=== PATIENT | male | born 1995 | race African-American/Black ===

== ENCOUNTER 2016-12-07 21:37 | Inpatient (IN) | payer MEDICAID ==
[~2016-12-07] VITALS: Ht 188 cm; Wt 50.8 kg
[~2016-12-07 21:37] MED LIST: PANT40TA4 PO; SODI650T PO; SULF1TAB48 PO
[2016-12-08] MEDS ORDERED: SODIUM CHLORIDE 0.9% 1,000 ML IV ONE ×3 (00:38→06:49)
[2016-12-08] MEDS ORDERED: KETOROLAC 30MG/ML VIAL IV STA (00:38)
[2016-12-08] MEDS ORDERED: DIPHENHYDRAMINE 50MG/ML VIAL IV ONE ×3 (00:45→06:45)
[2016-12-08 00:56] LABS: BASOPHILS % 0.3 % (0.0-2.0); EOSINOPHILS % 0.6 % (0.0-5.0); HEMATOCRIT. 40.5 % (42.0-52.0); HEMOGLOBIN. 13.3 g/dL (14.0-18.0); LYMPHOCYTES % 8.1 % (20.0-50.0); MEAN CORPUSCULAR HEMOGLOBIN 27.3 pg (28.0-32.0); MEAN CORPUSCULAR HGB CONC 32.8 g/dL (31.0-37.0); MEAN CORPUSCULAR VOLUME 83.2 fL (80.0-94.0); MEAN PLATELET VOLUME 6.6 fl (7.4-10.4); MONOCYTES % 9.1 % (2.0-8.0); NEUTROPHILS % 81.9 % (40.0-76.0); PLATELET 628 x1000/uL (130-400); RED BLOOD CELL COUNT 4.87 mill/uL (4.7-6.1); RED CELL DISTRIBUTION WIDTH 18.3 % (11.6-14.6); WHITE BLOOD COUNT 16.5 x1000/uL (4.5-11.0)
[2016-12-08 01:01] LABS: PROTHROMBIN TIME 10.7 sec
[2016-12-08 01:06] LABS: ALANINE AMINOTRANSFERASE 33 IU/L (13-61); ALBUMIN 3.5 g/dL (3.4-5.0); ANION GAP 13; CALCIUM 8.5 mg/dL (8.5-10.1); CARBON DIOXIDE 14 mEq/L (21-32); CHLORIDE 114 mEq/L (98-107); INDEX HEMOLYSI 1 (1-3); INDEX ICTERIC 1 (1-4); INDEX LIPEMIC 1 (1-3); LIPASE 109 IU/L (73-393); UREA NITROGEN BLOOD 10 mg/dL (7-21); eGFR > 60 mL/min (>60)
[2016-12-08] MEDS ORDERED: HYDROCODONE/ACETAMINOPHEN 5/325MG TABLET PO ONE (02:15)
[2016-12-08] MEDS ORDERED: MORPHINE SULFATE 4 MG/ML CPJ (NOT FOR IM USE) IV ONE (03:15)
[2016-12-08] MEDS ORDERED: PIPERACILLIN/TAZ 3.375G PREMIX 50 ML IV ONE (06:45)
[2016-12-08] MEDS ORDERED: VANCOMYCIN 500 MG in DEXT 5% WATER 100 ML IV SCH (06:45)
[2016-12-08] MEDS ORDERED: ONDANSETRON HCL 4MG/2ML VIAL IV STA (06:49)
[2016-12-08] MEDS ORDERED: MORPHINE SULFATE 4 MG/ML CPJ (NOT FOR IM USE) IV STA (06:49)
[2016-12-08 07:29] LABS: CHLORIDE 115 mEq/L (98-107); INDEX HEMOLYSI 1 (1-3); INDEX ICTERIC 1 (1-4); INDEX LIPEMIC 1 (1-3)
[2016-12-08 07:30] LABS: BASOPHILS % 0.4 % (0.0-2.0); EOSINOPHILS % 1.6 % (0.0-5.0); HEMOGLOBIN. 12.3 g/dL (14.0-18.0); MEAN CORPUSCULAR HEMOGLOBIN 27.5 pg (28.0-32.0); MEAN CORPUSCULAR HGB CONC 33.1 g/dL (31.0-37.0); MEAN CORPUSCULAR VOLUME 83.1 fL (80.0-94.0); MEAN PLATELET VOLUME 6.5 fl (7.4-10.4); MONOCYTES % 8.5 % (2.0-8.0); NEUTROPHILS % 72.5 % (40.0-76.0); PLATELET 613 x1000/uL (130-400); RED BLOOD CELL COUNT 4.45 mill/uL (4.7-6.1); RED CELL DISTRIBUTION WIDTH 17.9 % (11.6-14.6); WHITE BLOOD COUNT 14.4 x1000/uL (4.5-11.0)
[2016-12-08 07:32] LABS: INR 1.1
[2016-12-08 07:38] LABS: ALANINE AMINOTRANSFERASE 28 IU/L (13-61); ALBUMIN 3.1 g/dL (3.4-5.0); ANION GAP 12; CALCIUM 8.6 mg/dL (8.5-10.1); CARBON DIOXIDE 13 mEq/L (21-32); LIPASE 84 IU/L (73-393); UREA NITROGEN BLOOD 10 mg/dL (7-21); eGFR > 60 mL/min (>60)
[2016-12-08 09:28] LABS: CLARITY URINE CLEAR (CLEAR); COLOR URINE YELLOW (YELLOW); GLUCOSE URINE NEGATIVE (NEGATIVE); KETONES URINE NEGATIVE (NEGATIVE); LEUKOCYTE ESTERASE URINE NEGATIVE (NEGATIVE); NITRITE URINE NEGATIVE (NEGATIVE); OCCULT BLOOD URINE NEGATIVE (NEGATIVE); PROTEIN URINE 1+ (NEGATIVE); SPECIFIC GRAVITY URINE 1.047 (1.005-1.030); UROBILINOGEN URINE 0.2 E.U./dL (0.2-1.0)
[2016-12-08 09:43] LABS: RBC URINE NONE SEEN /hpf (0-2); SQUAMOUS EPITHELIAL CELL URINE RARE /lpf (RARE/1+); WBC URINE 0-2 /hpf (0-2)
[2016-12-08 09:44] LABS: BACTERIA URINE TRACE; COARSE GRANULAR CASTS URINE 0-5 /lpf
[2016-12-08] MEDS ORDERED: SODIUM CHLORIDE 0.9% 10ML VIAL ONE (10:36)
[2016-12-08] MEDS ORDERED: IOHEXOL-300 100 ML BOTTLE ONE (10:36)
[2016-12-08] MEDS ORDERED: LORAZEPAM 2MG/ML CPJ IV PRN (11:00)
[2016-12-08 11:07] VITALS: BP 95/58
[2016-12-08] MEDS: DIPHENHYDRAMINE 50MG/ML VIAL IV PRN ×3 (11:40→21:23)
[2016-12-08] MEDS: MORPHINE SULFATE 2 MG/ML CPJ (NOT FOR IM USE) IV PRN ×3 (11:40→21:24)
[2016-12-08] MEDS: DEXT 5%/0.45% NACL KCL 20MEQ/L 1,000 ML IV SCH ×2 (12:15→14:42)
[2016-12-08] MEDS ORDERED: VANCOMYCIN 1 G PREMIX 200 ML IV SCH (14:00)
[2016-12-08] MEDS: PIPERACILLIN/TAZ 3.375G PREMIX 50 ML IV SCH ×2 (14:42→17:58)
[2016-12-08 16:00] VITALS: BP_SYST 80; BP_SYST 97; BP_DIAS 55; BP_DIAS 67
[2016-12-08 16:28] LABS: CREATINE KINASE 30 IU/L (39-308); INDEX HEMOLYSI 1 (1-3); TROPONIN I < 0.02 ng/mL (0.00-0.04)
[2016-12-08] MEDS: VANCOMYCIN 1500MG in DEXTROSE 5% WATER 250ML IV SCH ×2 (17:57→23:59)
[2016-12-08] MEDS: ONDANSETRON HCL 4MG/2ML VIAL IV PRN (17:58)
[2016-12-08 20:00] VITALS: BP 93/58
[2016-12-09] MEDS: ONDANSETRON HCL 4MG/2ML VIAL IV PRN ×3 (01:49→18:17)
[2016-12-09] MEDS: DIPHENHYDRAMINE 50MG/ML VIAL IV PRN ×5 (01:49→21:47)
[2016-12-09] MEDS: PIPERACILLIN/TAZ 3.375G PREMIX 50 ML IV SCH ×4 (01:49→18:00)
[2016-12-09] MEDS: MORPHINE SULFATE 2 MG/ML CPJ (NOT FOR IM USE) IV PRN ×3 (01:53→10:38)
[2016-12-09 04:00] VITALS: BP 98/67
[2016-12-09] MEDS: VANCOMYCIN 1500MG in DEXTROSE 5% WATER 250ML IV SCH (06:03)
[2016-12-09 07:49] LABS: HEMATOCRIT. 34.1 % (42.0-52.0); HEMOGLOBIN. 11.1 g/dL (14.0-18.0); MEAN CORPUSCULAR HEMOGLOBIN 26.9 pg (28.0-32.0); MEAN CORPUSCULAR HGB CONC 32.6 g/dL (31.0-37.0); MEAN CORPUSCULAR VOLUME 82.5 fL (80.0-94.0); MEAN PLATELET VOLUME 6.7 fl (7.4-10.4); PLATELET 589 x1000/uL (130-400); RED BLOOD CELL COUNT 4.13 mill/uL (4.7-6.1); WHITE BLOOD COUNT 14.1 x1000/uL (4.5-11.0)
[2016-12-09 08:00] VITALS: BP 79/51
[2016-12-09 08:02] LABS: CREATINE KINASE 28 IU/L (39-308); INDEX HEMOLYSI 1 (1-3); TROPONIN I < 0.02 ng/mL (0.00-0.04)
[2016-12-09 08:12] LABS: DIFFERENTIAL COMMENT 1
[2016-12-09 09:29] LABS: ALANINE AMINOTRANSFERASE 20 IU/L (13-61); ALBUMIN 2.9 g/dL (3.4-5.0); ANION GAP 13; CALCIUM 8.1 mg/dL (8.5-10.1); CARBON DIOXIDE 17 mEq/L (21-32); CHLORIDE 114 mEq/L (98-107); HDL CHOLESTEROL 49 mg/dL (40-59); INDEX HEMOLYSI 1 (1-3); INDEX ICTERIC 1 (1-4); INDEX LIPEMIC 1 (1-3); LDL CHOLESTEROL 19 mg/dL (5-100); T3 FREE 1.61 pg/ml (2.18-3.98); T4 FREE 1.35 ng/dL (0.76-1.46); THYROID STIMULATING HORMONE 0.31 uIU/mL (0.36-3.74); TRIGLYCERIDE 49 mg/dL (0-150); UREA NITROGEN BLOOD 7 mg/dL (7-21); eGFR > 60 mL/min (>60)
[2016-12-09 11:57] LABS: ATYPICAL LYMPHOCYTES 1
[2016-12-09 11:58] LABS: PLATELET ESTIMATE MARKEDLY INCREASED; ROULEAUX 2+
[2016-12-09 12:00] VITALS: BP 85/61
[2016-12-09] MEDS ORDERED: MORPHINE SULFATE 4 MG/ML CPJ (NOT FOR IM USE) IV NR (13:15)
[2016-12-09 13:59] LABS: *AMPHETAMINES SCREEN URINE NEGATIVE (NEGATIVE); *BARBITURATES SCREEN URINE NEGATIVE (NEGATIVE); *BENZODIAZEPINES SCREEN URINE NEGATIVE (NEGATIVE); *COCAINE SCREEN URINE NEGATIVE (NEGATIVE); CANNABINOID URINE SCREEN PRESUMTIVE POSITIVE (NEGATIVE); ECSTASY MDMA SCREEN URINE NEGATIVE (NEGATIVE); METHADONE URINE SCREEN NEGATIVE (NEGATIVE); OPIATES URINE SCREEN PRESUMTIVE POSITIVE (NEGATIVE); PHENCYCLIDINE URINE SCREEN NEGATIVE (NEGATIVE)
[2016-12-09] MEDS ORDERED: MORPHINE SULFATE 2 MG/ML CPJ (NOT FOR IM USE) IV PRN (15:00)
[2016-12-09] MEDS ORDERED: SODIUM CHLORIDE 0.9% 1,000 ML IV ONE (15:15)
[2016-12-09 16:00] VITALS: BP 97/64
[2016-12-09 20:00] VITALS: BP 110/66
[2016-12-09] MEDS ORDERED: HYDROCODONE/ACETAMINOPHEN 5/325MG TABLET PO PRN (20:30)
[2016-12-10] VITALS: BP 102/73
[2016-12-10] MEDS: ONDANSETRON HCL 4MG/2ML VIAL IV PRN ×2 (00:22→09:42)
[2016-12-10] MEDS: DIPHENHYDRAMINE 50MG/ML VIAL IV PRN ×4 (01:42→14:09)
[2016-12-10] MEDS: PIPERACILLIN/TAZ 3.375G PREMIX 50 ML IV SCH ×3 (05:23→12:15)
[2016-12-10 08:00] VITALS: BP 100/68
[2016-12-10] MEDS ORDERED: MORPHINE SULFATE 4 MG/ML CPJ (NOT FOR IM USE) IV SCH (08:30)
[2016-12-10 12:00] VITALS: BP 99/62
[2016-12-10 12:54] VITALS: BP 99/62
== END 2016-12-10 15:30 | disposition home or self-care (01) | DRG 721 ==
LOC: ER 21:37 → 6EST 12-08 08:36 → SUPCPDRO 12-08 09:39
PROVIDERS: ADMIT Internal Medicine; ATTEND Internal Medicine
DX: T80.218A Other infection due to central venous catheter, initial encounter (principal); K65.1 Peritoneal abscess; A41.9 Sepsis, unspecified organism; J45.909 Unspecified asthma, uncomplicated; Y83.8 Other surgical procedures as the cause of abnormal reaction of the patient, or of later complication, without mention of misadventure at the time of the procedure; I10 Essential (primary) hypertension; Y92.89 Other specified places as the place of occurrence of the external cause; Z90.81 Acquired absence of spleen; Z90.5 Acquired absence of kidney; Z93.3 Colostomy status
CPT/HCPCS: 36415; 71010; 74177; 80053; 80061; 80202; 80305; 81001; 82550; 83605; 83690; 84439; 84443; 84481; 84484; 85025; 85610; 85730; 86850; 86900; 87040; 93005; 93970; 96365; 96366; 96367; 96375; 96376; 99285; A4216; J1200; J1885; J2060; J2270; J2405; J2543; J3370; J7030; J7060; Q9967

== ENCOUNTER 2016-12-30 02:39 | Emergency (ER) | payer MEDICAID ==
[~2016-12-30] VITALS: Ht 190.5 cm; Wt 51.0 kg
[2016-12-30] MEDS ORDERED: ONDANSETRON HCL 4MG/2ML VIAL IV STA (03:14)
[2016-12-30] MEDS ORDERED: SODIUM CHLORIDE 0.9% 1,000 ML IV ONE (03:14)
[2016-12-30] MEDS ORDERED: MORPHINE SULFATE 4 MG/ML CPJ (NOT FOR IM USE) IV STA (03:14)
[2016-12-30 03:30] LABS: HEMOGLOBIN. 12.8 g/dL (14.0-18.0); MEAN CORPUSCULAR HEMOGLOBIN 26.8 pg (28.0-32.0); MEAN CORPUSCULAR HGB CONC 32.8 g/dL (31.0-37.0); MEAN CORPUSCULAR VOLUME 81.6 fL (80.0-94.0); MEAN PLATELET VOLUME 6.9 fl (7.4-10.4); PLATELET 608 x1000/uL (130-400); RED BLOOD CELL COUNT 4.78 mill/uL (4.7-6.1); RED CELL DISTRIBUTION WIDTH 18.5 % (11.6-14.6); WHITE BLOOD COUNT 14.5 x1000/uL (4.5-11.0)
[2016-12-30 03:36] LABS: DIFFERENTIAL COMMENT 1
[2016-12-30 03:37] LABS: CHLORIDE 117 mEq/L (98-107); INDEX HEMOLYSI 2 (1-3); INDEX ICTERIC 1 (1-4); INDEX LIPEMIC 1 (1-3); INR 1.2; PARTIAL THROMBOPLASTIN TIME 27.5 sec (24.0-34.0); PROTHROMBIN TIME 12.6 sec
[2016-12-30] MEDS ORDERED: DIPHENHYDRAMINE 50MG/ML VIAL IV ONE ×2 (03:45→05:15)
[2016-12-30 03:47] LABS: PLATELET ESTIMATE MARKEDLY INCREASED
[2016-12-30 03:49] LABS: ALBUMIN 3.4 g/dL (3.4-5.0); ANION GAP 14; CALCIUM 8.2 mg/dL (8.5-10.1); CARBON DIOXIDE 13 mEq/L (21-32); UREA NITROGEN BLOOD 4 mg/dL (7-21); eGFR > 60 mL/min (>60)
[2016-12-30 03:50] LABS: ALANINE AMINOTRANSFERASE 15 IU/L (13-61); LIPASE 119 IU/L (73-393)
[2016-12-30 03:58] LABS: CLARITY URINE CLEAR (CLEAR); COLOR URINE YELLOW (YELLOW); GLUCOSE URINE NEGATIVE (NEGATIVE); KETONES URINE NEGATIVE (NEGATIVE); LEUKOCYTE ESTERASE URINE NEGATIVE (NEGATIVE); NITRITE URINE NEGATIVE (NEGATIVE); OCCULT BLOOD URINE NEGATIVE (NEGATIVE); PH URINE 5.5 (4.5-8.0); PROTEIN URINE TRACE (NEGATIVE); SPECIFIC GRAVITY URINE 1.014 (1.005-1.030); UROBILINOGEN URINE 0.2 E.U./dL (0.2-1.0)
[2016-12-30 04:34] LABS: BACTERIA URINE NONE SEEN; RBC URINE 0-2 /hpf (0-2); SQUAMOUS EPITHELIAL CELL URINE NONE SEEN /lpf (RARE/1+); WBC URINE 0-2 /hpf (0-2)
[2016-12-30] MEDS ORDERED: ONDANSETRON HCL 4MG/2ML VIAL IV ONE ×2 (05:15→08:00)
[2016-12-30] MEDS ORDERED: MORPHINE SULFATE 4 MG/ML CPJ (NOT FOR IM USE) IV ONE ×3 (05:15→11:30)
[2016-12-30] MEDS ORDERED: CEFTRIAXONE 1 G PREMIX 50 ML IV ONE (06:15)
[2016-12-30] MEDS ORDERED: METRONIDAZOLE 500 MG PREMIX 100 ML IV ONE (06:15)
[2016-12-30] MEDS ORDERED: SODIUM CHLORIDE 0.9% 10ML VIAL ONE (10:30)
[2016-12-30] MEDS ORDERED: IOHEXOL-300 100 ML BOTTLE ONE (10:30)
[2016-12-30 15:14] VITALS: BP 104/65
== END 2016-12-30 15:18 | disposition home or self-care (01) ==
LOC: ER 02:46
DX: R10.9 Unspecified abdominal pain (principal); R11.0 Nausea; R53.1 Weakness; R12 Heartburn; Z93.3 Colostomy status; Z98.890 Other specified postprocedural states; Z88.8 Allergy status to other drugs, medicaments and biological substances
CPT/HCPCS: 36415; 74177; 80053; 81001; 83690; 85025; 85610; 85730; 96361; 96374; 96375; 96376; 99285; A4216; J1200; J2270; J2405; J7030; Q9967; Z7610

== ENCOUNTER 2017-01-04 00:18 | Inpatient (IN) | payer MEDICAID ==
[~2017-01-04] VITALS: Ht 190.5 cm; Wt 50.8 kg
[2017-01-04] VITALS (8 sets, daily range): BP systolic 92–123; BP diastolic 40–86
[2017-01-04] MEDS ORDERED: ONDANSETRON HCL 4MG/2ML VIAL IV STA (01:07)
[2017-01-04] MEDS ORDERED: MORPHINE SULFATE 4 MG/ML CPJ (NOT FOR IM USE) IV STA (01:07)
[2017-01-04] MEDS ORDERED: SODIUM CHLORIDE 0.9% 1,000 ML IV ONE (01:07)
[2017-01-04] MEDS ORDERED: DIPHENHYDRAMINE 50MG/ML VIAL IV ONE (01:15)
[2017-01-04 01:24] LABS: BASOPHILS % 0.4 % (0.0-2.0); EOSINOPHILS % 1.3 % (0.0-5.0); HEMATOCRIT. 44.5 % (42.0-52.0); HEMOGLOBIN. 14.7 g/dL (14.0-18.0); LYMPHOCYTES % 18.3 % (20.0-50.0); MEAN CORPUSCULAR HEMOGLOBIN 26.7 pg (28.0-32.0); MEAN CORPUSCULAR HGB CONC 33.1 g/dL (31.0-37.0); MEAN CORPUSCULAR VOLUME 80.8 fL (80.0-94.0); MONOCYTES % 6.5 % (2.0-8.0); NEUTROPHILS % 73.5 % (40.0-76.0); PLATELET 674 x1000/uL (130-400); WHITE BLOOD COUNT 11.5 x1000/uL (4.5-11.0)
[2017-01-04 01:28] LABS: CHLORIDE 113 mEq/L (98-107); INDEX HEMOLYSI 1 (1-3); INDEX ICTERIC 1 (1-4); INDEX LIPEMIC 1 (1-3)
[2017-01-04 01:37] LABS: ALANINE AMINOTRANSFERASE 26 IU/L (13-61); ANION GAP 16; CALCIUM 8.8 mg/dL (8.5-10.1); UREA NITROGEN BLOOD 13 mg/dL (7-21); eGFR > 60 mL/min (>60)
[2017-01-04 01:40] LABS: CARBON DIOXIDE 10 mEq/L (21-32)
[2017-01-04] MEDS ORDERED: ONDANSETRON HCL 4MG/2ML VIAL IV PRN (05:53)
[2017-01-04] MEDS ORDERED: DIPHENHYDRAMINE 50MG/ML VIAL IV PRN (05:54)
[2017-01-04] MEDS ORDERED: MORPHINE SULFATE 4 MG/ML CPJ (NOT FOR IM USE) IV PRN (05:54)
[2017-01-04] MEDS ORDERED: SODIUM BICARBONATE 8.4% 1 MEQ/ML 50ML SYR IV ONE ×2 (08:00→08:02)
[2017-01-04 09:48] LABS: BG BASE EXCESS -16.1 mmol/L (-2.0-2.0); BG CARBOXYHEMOGLOBIN 0.2 % (0.5-1.5); BG DEOXYHEMOGLOBIN 2.1 % (0.0-5.0); BG FRACTION INSPIRED OXYGEN 21; BG METHEMOGLOBIN 0.2 % (0.0-1.5); BG OXYGEN SATURATION 97.9 % (92.0-98.5); BG OXYHEMOGLOBIN 97.5 % (94.0-97.0); BG PCO2 25.7 mmHg (35.0-45.0); BG PH 7.209 (7.350-7.450); BG PO2 110.6 mmHg (75.0-100.0); BG SAMPLE SITE RIGHT BRACHIAL; BG VENT MODE ROOM AIR
[2017-01-04] MEDS ORDERED: SODIUM CHLORIDE 0.9% 1,000 ML IV NR (10:15)
[2017-01-04] MEDS ORDERED: DIPHENHYDRAMINE 50MG CAPSULE PO PRN (10:15)
[2017-01-04] MEDS ORDERED: DIPHENHYDRAMINE 50MG/ML VIAL IV NR (10:15)
[2017-01-04] MEDS: HYDROCODONE/ACETAMINOPHEN 10/325MG TABLET PO PRN ×2 (10:50→17:31)
[2017-01-04] MEDS: MORPHINE SULFATE 4 MG/ML CPJ (NOT FOR IM USE) IV PRN ×2 (14:39→22:17)
[2017-01-04] MEDS: DIPHENHYDRAMINE 50MG/ML VIAL IV PRN ×2 (14:43→22:15)
[2017-01-04] MEDS: POTASSIUM CHLORIDE 20MEQ TABLET SR PO NR ×2 (16:04→16:17)
[2017-01-04] MEDS: SODIUM BICARBONATE 650 MG TABLET PO SCH (17:30)
[2017-01-04] MEDS: ONDANSETRON HCL 4MG/2ML VIAL IV PRN (19:46)
[2017-01-05 00:01] VITALS: BP 122/86
[2017-01-05] MEDS: ONDANSETRON HCL 4MG/2ML VIAL IV PRN ×3 (01:46→17:14)
[2017-01-05 04:20] VITALS: BP 116/68
[2017-01-05] MEDS: DIPHENHYDRAMINE 50MG/ML VIAL IV PRN ×4 (04:24→22:57)
[2017-01-05] MEDS: MORPHINE SULFATE 4 MG/ML CPJ (NOT FOR IM USE) IV PRN ×4 (04:25→21:50)
[2017-01-05 08:00] VITALS: BP 112/61
[2017-01-05] MEDS ORDERED: PANTOPRAZOLE 40MG DR TABLET PO SCH (09:00)
[2017-01-05 09:13] LABS: HEMATOCRIT. 33.2 % (42.0-52.0); HEMOGLOBIN. 11.1 g/dL (14.0-18.0); MEAN CORPUSCULAR HEMOGLOBIN 26.7 pg (28.0-32.0); MEAN CORPUSCULAR HGB CONC 33.6 g/dL (31.0-37.0); MEAN CORPUSCULAR VOLUME 79.4 fL (80.0-94.0); MEAN PLATELET VOLUME 6.8 fl (7.4-10.4); PLATELET 534 x1000/uL (130-400); RED BLOOD CELL COUNT 4.17 mill/uL (4.7-6.1); RED CELL DISTRIBUTION WIDTH 18.8 % (11.6-14.6); WHITE BLOOD COUNT 12.3 x1000/uL (4.5-11.0)
[2017-01-05 09:17] LABS: DIFFERENTIAL COMMENT 1
[2017-01-05] MEDS: SODIUM BICARBONATE 650 MG TABLET PO SCH ×3 (09:31→17:00)
[2017-01-05 09:56] LABS: HYPOCHROMASIA 1+; PLATELET ESTIMATE INCREASED; TARGET CELLS 1+
[2017-01-05 09:57] LABS: ANISOCYTOSIS 1+
[2017-01-05 10:37] LABS: CHLORIDE 113 mEq/L (98-107); INDEX HEMOLYSI 1 (1-3); INDEX ICTERIC 1 (1-4); INDEX LIPEMIC 1 (1-3)
[2017-01-05 10:46] LABS: ALANINE AMINOTRANSFERASE 22 IU/L (13-61); ANION GAP 10; CALCIUM 7.8 mg/dL (8.5-10.1); CARBON DIOXIDE 21 mEq/L (21-32); UREA NITROGEN BLOOD 9 mg/dL (7-21); eGFR > 60 mL/min (>60)
[2017-01-05 16:00] VITALS: BP 100/62
[2017-01-05 18:00] VITALS: BP 118/62
[2017-01-05] MEDS: POTASSIUM CHLORIDE 20MEQ TABLET SR PO SCH (20:13)
[2017-01-05 22:00] VITALS: BP 107/70
[2017-01-06] MEDS: POTASSIUM CHLORIDE 20MEQ TABLET SR PO SCH (00:04)
[2017-01-06] MEDS: ONDANSETRON HCL 4MG/2ML VIAL IV PRN (00:10)
[2017-01-06] MEDS: MORPHINE SULFATE 4 MG/ML CPJ (NOT FOR IM USE) IV PRN ×2 (02:04→06:08)
[2017-01-06 04:00] VITALS: BP 103/74
[2017-01-06] MEDS: DIPHENHYDRAMINE 50MG/ML VIAL IV PRN (05:30)
[2017-01-06 08:00] VITALS: BP 99/70
== END 2017-01-06 08:55 | disposition home or self-care (01) | DRG 813 ==
LOC: ER 00:37 → 3WST 01:54 → 6EST 01-06 00:35
PROVIDERS: ADMIT Internal Medicine; ATTEND Internal Medicine
DX: T81.89XA Other complications of procedures, not elsewhere classified, initial encounter (principal); E87.2 Acidosis; I95.9 Hypotension, unspecified; Y83.8 Other surgical procedures as the cause of abnormal reaction of the patient, or of later complication, without mention of misadventure at the time of the procedure; E86.0 Dehydration; I10 Essential (primary) hypertension; K59.00 Constipation, unspecified; Z60.2 Problems related to living alone; Z93.3 Colostomy status; Y92.89 Other specified places as the place of occurrence of the external cause
CPT/HCPCS: 36415; 36600; 71010; 74000; 80053; 82010; 82375; 82805; 83605; 85025; 87070; 87077; 87186; 87205; 96374; 96375; 97162; 99285; J1200; J2270; J2405; J3490; J7030; A4315

== ENCOUNTER 2017-01-06 09:50 | Inpatient (IN) | payer MEDICAID ==
[~2017-01-06] VITALS: Ht 160 cm; Wt 81.0 kg
[2017-01-06] MEDS ORDERED: MORPHINE SULFATE 4 MG/ML CPJ (NOT FOR IM USE) IV STA (10:37)
[2017-01-06] MEDS ORDERED: DIPHENHYDRAMINE 50MG/ML VIAL IV ONE (10:45)
[2017-01-06 10:56] LABS: CHLORIDE 111 mEq/L (98-107)
[2017-01-06 11:05] LABS: BASOPHILS % 0.5 % (0.0-2.0); CARBON DIOXIDE 22 mEq/L (21-32); EOSINOPHILS % 2.6 % (0.0-5.0); HEMATOCRIT. 36.5 % (42.0-52.0); LYMPHOCYTES % 14.2 % (20.0-50.0); MEAN CORPUSCULAR HEMOGLOBIN 26.5 pg (28.0-32.0); MEAN CORPUSCULAR VOLUME 80.8 fL (80.0-94.0); MEAN PLATELET VOLUME 7.1 fl (7.4-10.4); MONOCYTES % 6.2 % (2.0-8.0); NEUTROPHILS % 76.5 % (40.0-76.0); PLATELET 588 x1000/uL (130-400); RED BLOOD CELL COUNT 4.52 mill/uL (4.7-6.1)
[2017-01-06] MEDS ORDERED: MORPHINE SULFATE 4 MG/ML CPJ (NOT FOR IM USE) IV ONE (14:15)
[2017-01-06] MEDS ORDERED: ONDANSETRON HCL 4MG/2ML VIAL IV ONE (16:30)
[2017-01-06 22:10] VITALS: BP 107/71
[2017-01-06 22:22] VITALS: BP 107/71
[2017-01-07 00:22] VITALS: BP 102/77
[2017-01-07] MEDS: HYDROMORPHONE HCL/PF 2MG/ML CPJ IV PRN ×6 (00:25→22:23)
[2017-01-07 04:30] VITALS: BP 95/58
[2017-01-07 06:27] LABS: CHLORIDE 113 mEq/L (98-107)
[2017-01-07 06:33] LABS: CARBON DIOXIDE 18 mEq/L (21-32)
[2017-01-07 06:46] LABS: BASOPHILS % 0.6 % (0.0-2.0); EOSINOPHILS % 2.9 % (0.0-5.0); HEMATOCRIT. 36.7 % (42.0-52.0); HEMOGLOBIN. 12.1 g/dL (14.0-18.0); LYMPHOCYTES % 17.5 % (20.0-50.0); MEAN CORPUSCULAR HEMOGLOBIN 26.8 pg (28.0-32.0); MEAN CORPUSCULAR VOLUME 80.9 fL (80.0-94.0); MEAN PLATELET VOLUME 7.3 fl (7.4-10.4); MONOCYTES % 7.8 % (2.0-8.0); NEUTROPHILS % 71.2 % (40.0-76.0); PLATELET 608 x1000/uL (130-400); RED BLOOD CELL COUNT 4.53 mill/uL (4.7-6.1)
[2017-01-07 08:00] VITALS: BP 94/55
[2017-01-07] MEDS ORDERED: POTASSIUM CHLORIDE 20MEQ TABLET SR PO NR ×2 (08:30)
[2017-01-07] MEDS: DIPHENHYDRAMINE 50MG/ML VIAL IV PRN ×3 (10:42→22:21)
[2017-01-07] MEDS: ONDANSETRON HCL 4MG/2ML VIAL IV PRN ×2 (10:42→18:12)
[2017-01-07 12:00] VITALS: BP_SYST 110; BP_SYST 116; BP_DIAS 51; BP_DIAS 68
[2017-01-07] MEDS: SODIUM CHLORIDE 0.9% 1,000 ML IV SCH (13:07)
[2017-01-07 16:00] VITALS: BP 110/51
[2017-01-07 20:00] VITALS: BP 105/64
[2017-01-08] VITALS: BP 124/57
[2017-01-08] MEDS ORDERED: LACTULOSE 20G/30ML UDC PO PRN (01:00)
[2017-01-08] MEDS: SODIUM CHLORIDE 0.9% 1,000 ML IV SCH ×2 (01:54→14:46)
[2017-01-08] MEDS: DIPHENHYDRAMINE 50MG/ML VIAL IV PRN ×2 (02:24→06:14)
[2017-01-08] MEDS: HYDROMORPHONE HCL/PF 2MG/ML CPJ IV PRN ×3 (02:30→10:12)
[2017-01-08 04:00] VITALS: BP 120/66
[2017-01-08 08:00] VITALS: BP 94/57
[2017-01-08 12:00] VITALS: BP 99/66
[2017-01-08] MEDS: HYDROCODONE/APAP 7.5/325MG 1 TAB TABLET PO PRN ×2 (12:50→16:52)
[2017-01-08 16:00] VITALS: BP 95/69
[2017-01-08] MEDS: OXYCODONE HCL/ACETAMINOPHEN 5/325MG TABLET PO PRN ×2 (18:17→22:19)
[2017-01-08] MEDS: DIPHENHYDRAMINE 50MG CAPSULE PO PRN ×2 (18:49→22:49)
[2017-01-08] MEDS ORDERED: POTASSIUM CHLORIDE 20MEQ TABLET SR PO NR (19:30)
[2017-01-08 20:00] VITALS: BP 103/62
[2017-01-08] MEDS: ONDANSETRON HCL 4MG/2ML VIAL IV PRN (23:07)
[2017-01-09] MEDS: SODIUM CHLORIDE 0.9% 1,000 ML IV SCH (02:48)
[2017-01-09] MEDS: DIPHENHYDRAMINE 50MG CAPSULE PO PRN (03:56)
[2017-01-09 04:00] VITALS: BP 115/74
[2017-01-09] MEDS: OXYCODONE HCL/ACETAMINOPHEN 5/325MG TABLET PO PRN (04:00)
[2017-01-09 08:00] VITALS: BP 148/76
[2017-01-09] MEDS ORDERED: MORPHINE SULFATE 4 MG/ML CPJ (NOT FOR IM USE) IV NR (10:00)
[2017-01-09 11:21] LABS: CARBON DIOXIDE 17 mEq/L (21-32); CHLORIDE 114 mEq/L (98-107)
[2017-01-09 12:00] VITALS: BP 110/71
[2017-01-09] MEDS: MORPHINE SULFATE 4 MG/ML CPJ (NOT FOR IM USE) IV PRN ×2 (15:54→20:18)
[2017-01-09 16:00] VITALS: BP 103/69
[2017-01-09] MEDS: ONDANSETRON HCL 4MG/2ML VIAL IV PRN (21:02)
[2017-01-10] VITALS (7 sets, daily range): BP systolic 100–132; BP diastolic 59–74
[2017-01-10] MEDS: MORPHINE SULFATE 4 MG/ML CPJ (NOT FOR IM USE) IV PRN ×6 (00:14→21:30)
[2017-01-10] MEDS: DIPHENHYDRAMINE 50MG CAPSULE PO PRN ×2 (01:10→21:30)
[2017-01-10] MEDS: ONDANSETRON HCL 4MG/2ML VIAL IV PRN ×4 (04:47→23:45)
[2017-01-10] MEDS: SODIUM CHLORIDE 0.9% 1,000 ML IV SCH ×2 (04:55→18:18)
[2017-01-10] MEDS: MAGNESIUM HYDROXIDE 400MG/5ML 30ML UDC PO PRN (15:41)
[2017-01-10] MEDS: THROAT LOZENGES-BENZOCAINE/MENTH/CETYLPYRD CL LOZENGES MM PRN (16:26)
[2017-01-11] VITALS: BP 148/80
[2017-01-11] MEDS: MORPHINE SULFATE 4 MG/ML CPJ (NOT FOR IM USE) IV PRN ×6 (01:44→21:45)
[2017-01-11] MEDS: DIPHENHYDRAMINE 50MG CAPSULE PO PRN ×2 (01:44→05:46)
[2017-01-11 04:00] VITALS: BP 113/67
[2017-01-11] MEDS: ONDANSETRON HCL 4MG/2ML VIAL IV PRN ×2 (05:38→13:37)
[2017-01-11] MEDS: SODIUM CHLORIDE 0.9% 1,000 ML IV SCH ×2 (07:33→21:45)
[2017-01-11 08:00] VITALS: BP 102/60
[2017-01-11 12:00] VITALS: BP 108/61
[2017-01-11] MEDS: THROAT LOZENGES-BENZOCAINE/MENTH/CETYLPYRD CL LOZENGES MM PRN (13:37)
[2017-01-11] MEDS: MAGNESIUM HYDROXIDE 400MG/5ML 30ML UDC PO PRN (13:37)
[2017-01-11 16:00] VITALS: BP 112/73
[2017-01-11 20:00] VITALS: BP 133/66
[2017-01-12] VITALS: BP 142/68
[2017-01-12] MEDS: DIPHENHYDRAMINE 50MG CAPSULE PO PRN ×3 (01:33→19:56)
[2017-01-12] MEDS: ONDANSETRON HCL 4MG/2ML VIAL IV PRN ×4 (02:06→19:56)
[2017-01-12] MEDS: MORPHINE SULFATE 4 MG/ML CPJ (NOT FOR IM USE) IV PRN ×6 (02:07→21:32)
[2017-01-12 04:00] VITALS: BP 105/65
[2017-01-12 08:00] VITALS: BP 118/66
[2017-01-12] MEDS: MAGNESIUM HYDROXIDE 400MG/5ML 30ML UDC PO PRN (10:02)
[2017-01-12] MEDS: SODIUM CHLORIDE 0.9% 1,000 ML IV SCH (10:18)
[2017-01-12 12:00] VITALS: BP 119/71
[2017-01-12 16:00] VITALS: BP 118/72
[2017-01-12] MEDS: THROAT LOZENGES-BENZOCAINE/MENTH/CETYLPYRD CL LOZENGES MM PRN (17:57)
[2017-01-12 20:00] VITALS: BP 106/64
[2017-01-13] VITALS: BP 102/56
[2017-01-13] MEDS: DIPHENHYDRAMINE 50MG CAPSULE PO PRN ×4 (00:09→18:48)
[2017-01-13] MEDS: SODIUM CHLORIDE 0.9% 1,000 ML IV SCH ×2 (00:14→13:00)
[2017-01-13] MEDS: THROAT LOZENGES-BENZOCAINE/MENTH/CETYLPYRD CL LOZENGES MM PRN ×3 (01:35→21:18)
[2017-01-13] MEDS: MORPHINE SULFATE 4 MG/ML CPJ (NOT FOR IM USE) IV PRN ×7 (01:36→21:07)
[2017-01-13 04:00] VITALS: BP 111/67
[2017-01-13] MEDS: ONDANSETRON HCL 4MG/2ML VIAL IV PRN ×3 (05:35→18:18)
[2017-01-13 08:00] VITALS: BP 96/63
[2017-01-13] MEDS: MAGNESIUM HYDROXIDE 400MG/5ML 30ML UDC PO PRN (10:43)
[2017-01-13 12:00] VITALS: BP 96/63
[2017-01-13] MEDS: METRONIDAZOLE 500 MG PREMIX 100 ML IV SCH ×2 (14:39→21:06)
[2017-01-13] MEDS: LEVOFLOXACIN 500MG PREMIX 100 ML IV SCH (14:39)
[2017-01-13 16:00] VITALS: BP 106/61
[2017-01-13] MEDS: DOCUSATE SODIUM 100MG CAPSULE PO SCH (17:29)
[2017-01-13 20:00] VITALS: BP 107/61
[2017-01-14] VITALS: BP 117/63
[2017-01-14] MEDS: ONDANSETRON HCL 4MG/2ML VIAL IV PRN ×3 (00:07→13:16)
[2017-01-14] MEDS: MORPHINE SULFATE 4 MG/ML CPJ (NOT FOR IM USE) IV PRN ×5 (00:08→12:45)
[2017-01-14] MEDS: DIPHENHYDRAMINE 50MG CAPSULE PO PRN ×2 (02:51→06:40)
[2017-01-14] MEDS: SODIUM CHLORIDE 0.9% 1,000 ML IV SCH (02:51)
[2017-01-14] MEDS: THROAT LOZENGES-BENZOCAINE/MENTH/CETYLPYRD CL LOZENGES MM PRN ×2 (03:10→10:17)
[2017-01-14 04:00] VITALS: BP 100/64
[2017-01-14] MEDS: METRONIDAZOLE 500 MG PREMIX 100 ML IV SCH (06:07)
[2017-01-14 08:00] VITALS: BP 108/63
[2017-01-14] MEDS: DOCUSATE SODIUM 100MG CAPSULE PO SCH (09:00)
[2017-01-14] MEDS: MAGNESIUM HYDROXIDE 400MG/5ML 30ML UDC PO PRN (10:17)
[2017-01-14 12:00] VITALS: BP 131/68
[2017-01-14 12:03] VITALS: BP 108/63
[2017-01-14] MEDS: LEVOFLOXACIN 500MG PREMIX 100 ML IV SCH (13:16)
[2017-01-14 16:00] VITALS: BP 129/69
== END 2017-01-14 16:53 | disposition home or self-care (01) | DRG 721 ==
LOC: ER 11:41 → 6EST 16:35
PROVIDERS: ADMIT Hospitalist; ATTEND Hospitalist
DX: T81.4XXA Infection following a procedure, initial encounter (principal); N13.30 Unspecified hydronephrosis; L02.211 Cutaneous abscess of abdominal wall; E86.0 Dehydration; D64.9 Anemia, unspecified; E87.6 Hypokalemia; K59.00 Constipation, unspecified; Z93.3 Colostomy status
CPT/HCPCS: 36415; 74176; 80048; 80053; 85025; 96374; 96375; 96376; 99285; J1170; J1200; J1956; J2270; J2405; J3490; J7030; J7050; Q0163

== ENCOUNTER 2017-01-20 19:36 | Inpatient (IN) | payer MEDICAID ==
[~2017-01-20] VITALS: Ht 182.9 cm; Wt 49.9 kg
[2017-01-20] MEDS ORDERED: SODIUM CHLORIDE 0.9% 1,000 ML IV ONE (20:36)
[2017-01-20 20:58] LABS: HEMATOCRIT. 44.3 % (42.0-52.0); HEMOGLOBIN. 14.2 g/dL (14.0-18.0); MEAN CORPUSCULAR HEMOGLOBIN 26.4 pg (28.0-32.0); MEAN CORPUSCULAR VOLUME 82.1 fL (80.0-94.0); MEAN PLATELET VOLUME 7.1 fl (7.4-10.4); PLATELET 770 x1000/uL (130-400); RED CELL DISTRIBUTION WIDTH 18.3 % (11.6-14.6)
[2017-01-20 21:01] LABS: INR 1.6; PROTHROMBIN TIME 17.2 sec
[2017-01-20 21:08] LABS: CARBON DIOXIDE 13 mEq/L (21-32); CHLORIDE 115 mEq/L (98-107)
[2017-01-20 21:14] LABS: PLATELET ESTIMATE MARKEDLY INCREASED
[2017-01-20] MEDS ORDERED: DIPHENHYDRAMINE 25MG CAPSULE PO ONE (22:30)
[2017-01-20] MEDS ORDERED: HYDROCODONE/ACETAMINOPHEN 5/325MG TABLET PO ONE (22:30)
[2017-01-21 00:03] LABS: CLARITY URINE CLEAR (CLEAR); COLOR URINE YELLOW (YELLOW); GLUCOSE URINE NEGATIVE (NEGATIVE); KETONES URINE NEGATIVE (NEGATIVE); LEUKOCYTE ESTERASE URINE NEGATIVE (NEGATIVE); NITRITE URINE NEGATIVE (NEGATIVE); OCCULT BLOOD URINE NEGATIVE (NEGATIVE); PH URINE 5.5 (4.5-8.0); PROTEIN URINE 2+ (NEGATIVE); SPECIFIC GRAVITY URINE 1.018 (1.005-1.030); UROBILINOGEN URINE 0.2 E.U./dL (0.2-1.0)
[2017-01-21] MEDS ORDERED: DEXT 5%/0.45% NACL 1000ML 1,000 ML IV SCH (00:46)
[2017-01-21] MEDS ORDERED: ACETAMINOPHEN 325MG TABLET PO PRN (01:00)
[2017-01-21] MEDS ORDERED: CLONIDINE 0.1MG TABLET PO PRN (01:00)
[2017-01-21] MEDS ORDERED: DOCUSATE SODIUM 100MG CAPSULE PO PRN (01:00)
[2017-01-21] MEDS ORDERED: ACETAMINOPHEN 650MG/20.3ML UDC GT PRN (01:00)
[2017-01-21 01:30] VITALS: BP 109/68
[2017-01-21] MEDS ORDERED: MORPHINE SULFATE 4 MG/ML CPJ (NOT FOR IM USE) IV PRN ×2 (02:00→08:00)
[2017-01-21] MEDS ORDERED: ALBUTEROL (0.083%) 2.5MG/3ML NEB INH PRN (02:30)
[2017-01-21] MEDS: DIPHENHYDRAMINE 50MG/ML VIAL IV PRN ×5 (03:19→23:07)
[2017-01-21] MEDS: MORPHINE SULFATE 4 MG/ML CPJ (NOT FOR IM USE) IV PRN ×3 (03:33→15:21)
[2017-01-21 04:00] VITALS: BP 118/89
[2017-01-21] MEDS: SODIUM BICARBONATE 50 MEQ in DEXT 5%/0.45% NACL 1000ML 1,000 ML IV SCH (04:53)
[2017-01-21] MEDS: IPRATROPIUM/ALBUTEROL 0.5-3(2.5)MG/3ML NEB INH SCH ×2 (07:59→15:52)
[2017-01-21 08:00] VITALS: BP 100/78
[2017-01-21] MEDS: ONDANSETRON HCL 4MG/2ML VIAL IV PRN (09:47)
[2017-01-21 16:00] VITALS: BP 125/75
[2017-01-21] MEDS ORDERED: MORPHINE SULFATE 4 MG/ML CPJ (NOT FOR IM USE) IV NR (17:00)
[2017-01-21] MEDS ORDERED: HYDROCODONE/ACETAMINOPHEN 5/325MG TABLET PO PRN (17:00)
[2017-01-21 19:14] LABS: BASOPHILS % 1.4 % (0.0-2.0); EOSINOPHILS % 0.9 % (0.0-5.0); HEMATOCRIT. 38.4 % (42.0-52.0); HEMOGLOBIN. 12.5 g/dL (14.0-18.0); LYMPHOCYTES % 10.9 % (20.0-50.0); MEAN CORPUSCULAR HEMOGLOBIN 26.4 pg (28.0-32.0); MEAN CORPUSCULAR VOLUME 80.9 fL (80.0-94.0); MEAN PLATELET VOLUME 6.9 fl (7.4-10.4); MONOCYTES % 5.8 % (2.0-8.0); PLATELET 688 x1000/uL (130-400); RED BLOOD CELL COUNT 4.74 mill/uL (4.7-6.1); RED CELL DISTRIBUTION WIDTH 17.9 % (11.6-14.6)
[2017-01-21 19:21] LABS: CHLORIDE 114 mEq/L (98-107)
[2017-01-21 19:25] LABS: CARBON DIOXIDE 17 mEq/L (21-32)
[2017-01-21 20:00] VITALS: BP 114/70
[2017-01-21] MEDS: OXYCODONE HCL/ACETAMINOPHEN 5/325MG TABLET PO PRN (22:05)
[2017-01-22] VITALS: BP 101/72
[2017-01-22] MEDS: IPRATROPIUM/ALBUTEROL 0.5-3(2.5)MG/3ML NEB INH SCH ×3 (00:38→16:00)
[2017-01-22] MEDS: SODIUM BICARBONATE 50 MEQ in DEXT 5%/0.45% NACL 1000ML 1,000 ML IV SCH ×2 (03:40→14:21)
[2017-01-22] MEDS: DIPHENHYDRAMINE 50MG/ML VIAL IV PRN ×5 (03:41→20:58)
[2017-01-22 04:00] VITALS: BP 134/79
[2017-01-22] MEDS ORDERED: LIDOCAINE HCL/PF 1% 2ML VIAL ONE (07:00)
[2017-01-22 08:00] VITALS: BP 109/70
[2017-01-22] MEDS: OXYCODONE HCL/ACETAMINOPHEN 5/325MG TABLET PO PRN ×3 (08:39→22:19)
[2017-01-22] MEDS: CITRIC ACID/SODIUM CITRATE SOLN 15ML UDC PO SCH ×4 (09:00→17:00)
[2017-01-22 11:48] LABS: BG BASE EXCESS -11.3 mmol/L (-2.0-2.0); BG CARBOXYHEMOGLOBIN 0.2 % (0.5-1.5); BG DEOXYHEMOGLOBIN 1.9 % (0.0-5.0); BG METHEMOGLOBIN 0.1 % (0.0-1.5); BG OXYGEN SATURATION 98.1 % (92.0-98.5); BG OXYHEMOGLOBIN 97.8 % (94.0-97.0); BG PCO2 30.1 mmHg (35.0-45.0); BG PH 7.284 (7.350-7.450); BG PO2 108.7 mmHg (75.0-100.0); BG SAMPLE SITE RIGHT BRACHIAL; BG TOTAL HEMOGLOBIN 13.3 g/dL (12.0-18.0); BG VENT MODE ROOM AIR
[2017-01-22 12:00] VITALS: BP 113/79
[2017-01-22 16:00] VITALS: BP 117/82
[2017-01-22] MEDS: MAGNESIUM HYDROXIDE 400MG/5ML 30ML UDC PO PRN (16:21)
[2017-01-22] MEDS: THROAT LOZENGES-BENZOCAINE/MENTH/CETYLPYRD CL LOZENGES MM PRN ×2 (16:24→22:18)
[2017-01-22 20:00] VITALS: BP 112/63
[2017-01-22] MEDS: ONDANSETRON HCL 4MG/2ML VIAL IV PRN (23:46)
[2017-01-23] VITALS: BP 115/70
[2017-01-23] MEDS: IPRATROPIUM/ALBUTEROL 0.5-3(2.5)MG/3ML NEB INH SCH ×3 (00:40→12:13)
[2017-01-23] MEDS: DIPHENHYDRAMINE 50MG/ML VIAL IV PRN ×6 (00:48→22:55)
[2017-01-23 04:00] VITALS: BP 114/68
[2017-01-23] MEDS: ONDANSETRON HCL 4MG/2ML VIAL IV PRN ×5 (04:36→22:54)
[2017-01-23] MEDS: SODIUM BICARBONATE 50 MEQ in DEXT 5%/0.45% NACL 1000ML 1,000 ML IV SCH ×2 (04:36→14:56)
[2017-01-23] MEDS: THROAT LOZENGES-BENZOCAINE/MENTH/CETYLPYRD CL LOZENGES MM PRN ×3 (04:37→22:55)
[2017-01-23] MEDS: OXYCODONE HCL/ACETAMINOPHEN 5/325MG TABLET PO PRN ×3 (04:37→22:55)
[2017-01-23 08:00] VITALS: BP 105/72
[2017-01-23] MEDS: CITRIC ACID/SODIUM CITRATE SOLN 15ML UDC PO SCH ×3 (09:00→17:00)
[2017-01-23] MEDS: MAGNESIUM HYDROXIDE 400MG/5ML 30ML UDC PO PRN (10:46)
[2017-01-23 12:00] VITALS: BP 104/65
[2017-01-23 16:00] VITALS: BP 114/62
[2017-01-23 20:00] VITALS: BP 104/66
[2017-01-24] VITALS: BP 117/70
[2017-01-24] MEDS: IPRATROPIUM/ALBUTEROL 0.5-3(2.5)MG/3ML NEB INH SCH (00:12)
[2017-01-24] MEDS: MAGNESIUM HYDROXIDE 400MG/5ML 30ML UDC PO PRN (00:29)
[2017-01-24 00:47] VITALS: BP 117/70
[2017-01-24] MEDS: DIPHENHYDRAMINE 50MG/ML VIAL IV PRN ×3 (02:46→12:58)
[2017-01-24] MEDS: SODIUM BICARBONATE 50 MEQ in DEXT 5%/0.45% NACL 1000ML 1,000 ML IV SCH (02:50)
[2017-01-24 04:43] VITALS: BP 120/65
[2017-01-24] MEDS: CITRIC ACID/SODIUM CITRATE SOLN 15ML UDC PO SCH ×2 (08:51→13:00)
[2017-01-24] MEDS: THROAT LOZENGES-BENZOCAINE/MENTH/CETYLPYRD CL LOZENGES MM PRN (11:50)
[2017-01-24 12:32] VITALS: BP 107/64
== END 2017-01-24 14:55 | disposition home health service (06) | DRG 422 ==
LOC: ER 19:58 → 6EST 22:55 → ENRESERV 23:26 → 6EST 01-21 14:06
PROVIDERS: ADMIT Internal Medicine; ATTEND Internal Medicine
DX: E86.0 Dehydration (principal); K63.2 Fistula of intestine; Z93.0 Tracheostomy status; E87.2 Acidosis; G89.29 Other chronic pain; J40 Bronchitis, not specified as acute or chronic; Z93.3 Colostomy status
CPT/HCPCS: 36415; 36600; 71010; 80048; 80053; 81001; 81003; 82375; 82805; 83605; 85025; 85610; 94640; 94664; 96360; 99285; J1200; J2270; J2405; J3490; J7030; J7611; J7620; Q0163

== ENCOUNTER 2017-04-11 17:58 | Emergency (ER) | payer MEDICAID ==
[~2017-04-11] VITALS: Ht 180.3 cm; Wt 50.0 kg
[~2017-04-11 17:58] MED LIST changes: +GABA-529 PO; +MORP15TA67 PO; +ONDA4TAB5 PO; -SODI650T PO
[2017-04-11] MEDS ORDERED: MORPHINE SULFATE 4 MG/ML CPJ (NOT FOR IM USE) IV STA (19:45)
[2017-04-11] MEDS ORDERED: ONDANSETRON HCL 4MG/2ML VIAL IV STA (19:45)
[2017-04-11 20:47] LABS: HEMATOCRIT. 34.6 % (42.0-52.0); HEMOGLOBIN. 11.1 g/dL (14.0-18.0); MEAN CORPUSCULAR HEMOGLOBIN 25.5 pg (28.0-32.0); MEAN CORPUSCULAR VOLUME 79.7 fL (80.0-94.0); PLATELET 484 x1000/uL (130-400); RED BLOOD CELL COUNT 4.35 mill/uL (4.7-6.1); RED CELL DISTRIBUTION WIDTH 20.8 % (11.6-14.6)
[2017-04-11 20:52] LABS: INR 1.7; PROTHROMBIN TIME 17.4 sec (9.4-11.6)
[2017-04-11 20:56] LABS: CARBON DIOXIDE 13 mEq/L (21-32); CHLORIDE 118 mEq/L (98-107)
[2017-04-11 21:54] LABS: PLATELET ESTIMATE INCREASED
[2017-04-12 02:34] VITALS: BP 104/66
== END 2017-04-12 02:36 | disposition home or self-care (01) ==
LOC: ER 20:00
DX: R10.11 Right upper quadrant pain (principal); D72.829 Elevated white blood cell count, unspecified; E87.6 Hypokalemia; D64.9 Anemia, unspecified; D47.3 Essential (hemorrhagic) thrombocythemia
CPT/HCPCS: 36415; 80053; 83690; 85025; 85610; 96374; 96375; 99284; J2270; J2405; Z7610

== ENCOUNTER 2017-05-02 20:21 | Inpatient (IN) | payer MEDICAID ==
[~2017-05-02] VITALS: Ht 190.5 cm; Wt 56.2 kg
[2017-05-02] MEDS ORDERED: MAGNESIUM/ALUMINUM HYDROXIDE/SIMETHICONE 30ML UDC PO STA (21:43)
[2017-05-02] MEDS ORDERED: ONDANSETRON HCL 4MG/2ML VIAL IV STA (21:43)
[2017-05-02] MEDS ORDERED: SODIUM CHLORIDE 0.9% 1,000 ML IV ONE (21:43)
[2017-05-02] MEDS ORDERED: MORPHINE SULFATE 4 MG/ML CPJ (NOT FOR IM USE) IV STA (21:43)
[2017-05-02] MEDS ORDERED: FAMOTIDINE 20MG/2ML VIAL IV STA (21:43)
[2017-05-02] MEDS ORDERED: DIPHENHYDRAMINE 50MG/ML VIAL IV ONE ×2 (21:45→23:30)
[2017-05-02] MEDS ORDERED: MAGNESIUM/ALUMINUM HYDROXIDE/SIMETHICONE 30ML UDC PO ONE (23:30)
[2017-05-02] MEDS ORDERED: ONDANSETRON HCL 4MG/2ML VIAL IV ONE (23:30)
[2017-05-02 23:55] LABS: HEMOGLOBIN. 10.3 g/dL (14.0-18.0); MEAN CORPUSCULAR HEMOGLOBIN 25.4 pg (28.0-32.0); MEAN CORPUSCULAR VOLUME 78.9 fL (80.0-94.0); MEAN PLATELET VOLUME 6.4 fl (7.4-10.4); PLATELET 528 x1000/uL (130-400); RED BLOOD CELL COUNT 4.05 mill/uL (4.7-6.1); RED CELL DISTRIBUTION WIDTH 21.2 % (11.6-14.6)
[2017-05-03 00:03] LABS: INR 2.2; PROTHROMBIN TIME 23.1 sec (9.4-11.6)
[2017-05-03 00:14] LABS: CARBON DIOXIDE 17 mEq/L (21-32); CHLORIDE 116 mEq/L (98-107); ETHANOL BLOOD < 10 mg/dL; TROPONIN I < 0.02 ng/mL (0.00-0.04)
[2017-05-03] MEDS ORDERED: SODIUM CHLORIDE 0.9% 1,000 ML IV ONE (00:27)
[2017-05-03] MEDS ORDERED: VANCOMYCIN 1 G PREMIX 200 ML IV SCH (00:30)
[2017-05-03] MEDS ORDERED: PIPERACILLIN/TAZ 3.375G PREMIX 50 ML IV ONE (00:30)
[2017-05-03 00:56] LABS: CLARITY URINE CLEAR (CLEAR); COLOR URINE YELLOW (YELLOW); GLUCOSE URINE NEGATIVE (NEGATIVE); KETONES URINE NEGATIVE (NEGATIVE); LEUKOCYTE ESTERASE URINE NEGATIVE (NEGATIVE); NITRITE URINE NEGATIVE (NEGATIVE); OCCULT BLOOD URINE NEGATIVE (NEGATIVE); PROTEIN URINE NEGATIVE (NEGATIVE); SPECIFIC GRAVITY URINE 1.015 (1.005-1.030); UROBILINOGEN URINE 0.2 E.U./dL (0.2-1.0)
[2017-05-03 01:18] LABS: *AMPHETAMINES SCREEN URINE NEGATIVE (NEGATIVE); *BARBITURATES SCREEN URINE NEGATIVE (NEGATIVE); *BENZODIAZEPINES SCREEN URINE NEGATIVE (NEGATIVE); *COCAINE SCREEN URINE NEGATIVE (NEGATIVE); CANNABINOID URINE SCREEN PRESUMTIVE POSITIVE (NEGATIVE); METHADONE URINE SCREEN NEGATIVE (NEGATIVE); OPIATES URINE SCREEN PRESUMTIVE POSITIVE (NEGATIVE); PHENCYCLIDINE URINE SCREEN NEGATIVE (NEGATIVE)
[2017-05-03 02:02] LABS: NUCLEATED RED BLOOD CELLS 4 /100 WBC; PLATELET ESTIMATE INCREASED
[2017-05-03 03:18] VITALS: BP 112/79
[2017-05-03 04:00] VITALS: BP 116/87
[2017-05-03] MEDS ORDERED: HYDROCODONE/ACETAMINOPHEN 5/325MG TABLET PO PRN (06:45)
[2017-05-03] MEDS: ONDANSETRON HCL 4MG/2ML VIAL IV PRN ×2 (06:51→21:37)
[2017-05-03 08:09] VITALS: BP 111/76
[2017-05-03] MEDS ORDERED: MORPHINE SULFATE 2 MG/ML CPJ (NOT FOR IM USE) IV PRN (11:15)
[2017-05-03] MEDS ORDERED: MORPHINE SULFATE 4 MG/ML CPJ (NOT FOR IM USE) IV PRN (11:22)
[2017-05-03] MEDS: VANCOMYCIN 750 MG PREMIX 150 ML IV SCH ×2 (11:31→23:08)
[2017-05-03] MEDS: DIPHENHYDRAMINE 50MG/ML VIAL IV PRN ×2 (12:50→18:31)
[2017-05-03] MEDS: MAGNESIUM HYDROXIDE 400MG/5ML 30ML UDC PO PRN ×2 (15:21→21:37)
[2017-05-03] MEDS: MORPHINE SULFATE 4 MG/ML CPJ (NOT FOR IM USE) IV PRN ×3 (15:22→23:09)
[2017-05-03 15:55] VITALS: BP 109/68
[2017-05-03 20:00] VITALS: BP 114/73
[2017-05-04] VITALS: BP 93/54
[2017-05-04] MEDS: DIPHENHYDRAMINE 50MG/ML VIAL IV PRN ×4 (00:28→18:32)
[2017-05-04] MEDS: MORPHINE SULFATE 4 MG/ML CPJ (NOT FOR IM USE) IV PRN ×5 (02:55→21:44)
[2017-05-04 04:00] VITALS: BP 96/58
[2017-05-04 07:09] LABS: INR 1.6
[2017-05-04 07:26] LABS: CARBON DIOXIDE 21 mEq/L (21-32); CHLORIDE 110 mEq/L (98-107)
[2017-05-04 07:33] LABS: HEMATOCRIT. 30.4 % (42.0-52.0); MEAN CORPUSCULAR HEMOGLOBIN 25.7 pg (28.0-32.0); MEAN CORPUSCULAR VOLUME 78.2 fL (80.0-94.0); MEAN PLATELET VOLUME 7.1 fl (7.4-10.4); PLATELET 507 x1000/uL (130-400); RED BLOOD CELL COUNT 3.88 mill/uL (4.7-6.1); RED CELL DISTRIBUTION WIDTH 21.3 % (11.6-14.6)
[2017-05-04 08:11] VITALS: BP 104/70
[2017-05-04] MEDS: FAMOTIDINE 20MG TABLET PO SCH (09:00)
[2017-05-04] MEDS ORDERED: ENOXAPARIN 40MG/0.4ML SYR SUBCUT SCH (09:00)
[2017-05-04] MEDS ORDERED: POTASSIUM CHLORIDE 20MEQ TABLET SR PO SCH (10:00)
[2017-05-04] MEDS: VANCOMYCIN 750 MG PREMIX 150 ML IV SCH ×2 (10:50→21:43)
[2017-05-04 12:20] VITALS: BP 98/60
[2017-05-04] MEDS ORDERED: KCL 20MEQ/100ML PREMIX 100 ML IV NR (13:00)
[2017-05-04] MEDS: ONDANSETRON HCL 4MG/2ML VIAL IV PRN ×2 (15:46→21:44)
[2017-05-04 16:30] VITALS: BP 104/64
[2017-05-04 16:36] LABS: NUCLEATED RED BLOOD CELLS 6 /100 WBC; PLATELET ESTIMATE INCREASED
[2017-05-04] MEDS: MAGNESIUM HYDROXIDE 400MG/5ML 30ML UDC PO PRN (16:44)
[2017-05-04] MEDS: LACTATED RINGERS 1,000 ML IV SCH ×3 (17:53→23:45)
[2017-05-04 19:25] VITALS: BP 100/63
[2017-05-05 00:16] VITALS: BP 100/58
[2017-05-05] MEDS: DIPHENHYDRAMINE 50MG/ML VIAL IV PRN ×4 (00:34→18:39)
[2017-05-05] MEDS: MORPHINE SULFATE 4 MG/ML CPJ (NOT FOR IM USE) IV PRN ×6 (02:39→23:48)
[2017-05-05 04:43] VITALS: BP 128/71
[2017-05-05] MEDS: LACTATED RINGERS 1,000 ML IV SCH ×5 (06:45→23:45)
[2017-05-05 08:00] VITALS: BP 155/85
[2017-05-05] MEDS: FAMOTIDINE 20MG TABLET PO SCH (09:00)
[2017-05-05] MEDS: VANCOMYCIN 750 MG PREMIX 150 ML IV SCH ×2 (10:56→22:11)
[2017-05-05] MEDS: MAGNESIUM HYDROXIDE 400MG/5ML 30ML UDC PO PRN (11:05)
[2017-05-05 11:56] LABS: CARBON DIOXIDE 20 mEq/L (21-32); CHLORIDE 110 mEq/L (98-107)
[2017-05-05 12:28] VITALS: BP 98/59
[2017-05-05] MEDS: ONDANSETRON HCL 4MG/2ML VIAL IV PRN ×2 (13:42→19:51)
[2017-05-05 16:18] VITALS: BP 141/57
[2017-05-05 20:00] VITALS: BP 102/59
[2017-05-06] VITALS: BP 139/67
[2017-05-06] MEDS: DIPHENHYDRAMINE 50MG/ML VIAL IV PRN ×4 (00:39→19:38)
[2017-05-06 04:00] VITALS: BP 106/56
[2017-05-06] MEDS: MORPHINE SULFATE 4 MG/ML CPJ (NOT FOR IM USE) IV PRN ×5 (05:43→21:51)
[2017-05-06] MEDS: LACTATED RINGERS 1,000 ML IV SCH ×3 (06:15→15:45)
[2017-05-06 08:00] VITALS: BP 98/53
[2017-05-06] MEDS: FAMOTIDINE 20MG TABLET PO SCH ×2 (09:00→09:47)
[2017-05-06] MEDS: ONDANSETRON HCL 4MG/2ML VIAL IV PRN ×2 (10:09→18:06)
[2017-05-06] MEDS: MAGNESIUM HYDROXIDE 400MG/5ML 30ML UDC PO PRN (10:09)
[2017-05-06 11:09] LABS: HEMATOCRIT. 27.8 % (42.0-52.0); MEAN CORPUSCULAR HEMOGLOBIN 25.5 pg (28.0-32.0); MEAN PLATELET VOLUME 6.8 fl (7.4-10.4); PLATELET 471 x1000/uL (130-400); RED BLOOD CELL COUNT 3.52 mill/uL (4.7-6.1); RED CELL DISTRIBUTION WIDTH 20.9 % (11.6-14.6)
[2017-05-06 11:11] LABS: CARBON DIOXIDE 24 mEq/L (21-32); CHLORIDE 111 mEq/L (98-107)
[2017-05-06 11:39] VITALS: BP 103/62
[2017-05-06] MEDS: VANCOMYCIN 750 MG PREMIX 150 ML IV SCH ×2 (12:19→23:01)
[2017-05-06 16:09] VITALS: BP 105/67
[2017-05-06 16:57] LABS: NUCLEATED RED BLOOD CELLS 1 /100 WBC; PLATELET ESTIMATE INCREASED
[2017-05-06 19:04] LABS: FOLIC ACID (FOLATE) SERUM > 20.00 ng/mL (>5.38)
[2017-05-06 19:28] LABS: FERRITIN 9 ng/mL (22-322)
[2017-05-06 20:00] VITALS: BP 108/63
[2017-05-07] VITALS: BP 92/48
[2017-05-07] MEDS: LACTATED RINGERS 1,000 ML IV SCH ×5 (01:33→18:51)
[2017-05-07] MEDS: DIPHENHYDRAMINE 50MG/ML VIAL IV PRN ×4 (01:51→20:04)
[2017-05-07] MEDS: MORPHINE SULFATE 4 MG/ML CPJ (NOT FOR IM USE) IV PRN ×6 (02:50→23:57)
[2017-05-07] MEDS: ONDANSETRON HCL 4MG/2ML VIAL IV PRN ×4 (03:01→22:21)
[2017-05-07 05:45] LABS: HEMATOCRIT. 27.7 % (42.0-52.0); HEMOGLOBIN. 8.9 g/dL (14.0-18.0); MEAN CORPUSCULAR HEMOGLOBIN 25.3 pg (28.0-32.0); MEAN CORPUSCULAR VOLUME 78.8 fL (80.0-94.0); MEAN PLATELET VOLUME 6.7 fl (7.4-10.4); PLATELET 468 x1000/uL (130-400); RED BLOOD CELL COUNT 3.52 mill/uL (4.7-6.1); RED CELL DISTRIBUTION WIDTH 20.8 % (11.6-14.6)
[2017-05-07 06:29] LABS: CARBON DIOXIDE 24 mEq/L (21-32); CHLORIDE 111 mEq/L (98-107)
[2017-05-07 06:54] VITALS: BP 116/66
[2017-05-07 08:00] VITALS: BP 116/66
[2017-05-07] MEDS: FAMOTIDINE 20MG TABLET PO SCH (09:00)
[2017-05-07] MEDS: MAGNESIUM HYDROXIDE 400MG/5ML 30ML UDC PO PRN ×2 (09:29→22:20)
[2017-05-07] MEDS: VANCOMYCIN 750 MG PREMIX 150 ML IV SCH ×2 (11:07→22:21)
[2017-05-07 12:00] VITALS: BP 101/59
[2017-05-07] MEDS ORDERED: BARIUM SULFATE 450ML ORAL SUSP ONE (14:39)
[2017-05-07 16:00] VITALS: BP 123/67
[2017-05-07 20:46] VITALS: BP 147/73
[2017-05-07 23:05] LABS: PLATELET ESTIMATE INCREASED
[2017-05-08 00:09] VITALS: BP 123/64
[2017-05-08] MEDS: LACTATED RINGERS 1,000 ML IV SCH ×6 (00:10→21:12)
[2017-05-08] MEDS: DIPHENHYDRAMINE 50MG/ML VIAL IV PRN ×3 (01:58→15:21)
[2017-05-08] MEDS: MORPHINE SULFATE 4 MG/ML CPJ (NOT FOR IM USE) IV PRN ×5 (04:03→20:37)
[2017-05-08] MEDS ORDERED: LACTATED RINGERS 500 ML IV SCH (04:50)
[2017-05-08] MEDS ORDERED: LACTATED RINGERS 1,000 ML IV SCH ×3 (06:00→08:00)
[2017-05-08 08:00] VITALS: BP 118/65
[2017-05-08] MEDS: ONDANSETRON HCL 4MG/2ML VIAL IV PRN ×3 (08:18→21:39)
[2017-05-08] MEDS: FAMOTIDINE 20MG TABLET PO SCH ×2 (08:19→08:40)
[2017-05-08 12:00] VITALS: BP 116/55
[2017-05-08] MEDS: VANCOMYCIN 750 MG PREMIX 150 ML IV SCH ×2 (12:33→22:42)
[2017-05-08 16:00] VITALS: BP 118/59
[2017-05-08 20:00] VITALS: BP 103/52
[2017-05-08] MEDS: MAGNESIUM HYDROXIDE 400MG/5ML 30ML UDC PO PRN (21:11)
[2017-05-08] MEDS ORDERED: DIPHENHYDRAMINE 50MG/ML VIAL IV NR (21:20)
[2017-05-08 23:06] LABS: BASOPHILS % 0.6 % (0.0-2.0); EOSINOPHILS % 3.1 % (0.0-5.0); HEMATOCRIT. 26.1 % (42.0-52.0); HEMOGLOBIN. 8.4 g/dL (14.0-18.0); LYMPHOCYTES % 20.1 % (20.0-50.0); MEAN CORPUSCULAR HEMOGLOBIN 25.2 pg (28.0-32.0); MEAN CORPUSCULAR VOLUME 78.7 fL (80.0-94.0); MEAN PLATELET VOLUME 6.8 fl (7.4-10.4); MONOCYTES % 10.1 % (2.0-8.0); NEUTROPHILS % 66.1 % (40.0-76.0); PLATELET 424 x1000/uL (130-400); RED BLOOD CELL COUNT 3.32 mill/uL (4.7-6.1); RED CELL DISTRIBUTION WIDTH 20.5 % (11.6-14.6)
[2017-05-08 23:20] LABS: CHLORIDE 109 mEq/L (98-107)
[2017-05-08 23:26] LABS: CARBON DIOXIDE 25 mEq/L (21-32)
[2017-05-09] VITALS: BP 101/59
[2017-05-09] MEDS: MORPHINE SULFATE 4 MG/ML CPJ (NOT FOR IM USE) IV PRN ×6 (00:30→20:54)
[2017-05-09] MEDS: LACTATED RINGERS 1,000 ML IV SCH ×6 (00:30→22:56)
[2017-05-09] MEDS: DIPHENHYDRAMINE 50MG/ML VIAL IV PRN ×3 (01:23→13:39)
[2017-05-09 07:30] VITALS: BP 101/51
[2017-05-09] MEDS: FERROUS SULFATE 325MG TABLET PO SCH ×3 (07:50→16:56)
[2017-05-09] MEDS: FAMOTIDINE 20MG TABLET PO SCH (08:35)
[2017-05-09] MEDS: MAGNESIUM HYDROXIDE 400MG/5ML 30ML UDC PO PRN (08:35)
[2017-05-09 11:58] VITALS: BP 104/62
[2017-05-09] MEDS: VANCOMYCIN 750 MG PREMIX 150 ML IV SCH ×2 (12:07→22:56)
[2017-05-09] MEDS: ONDANSETRON HCL 4MG/2ML VIAL IV PRN ×2 (14:23→23:13)
[2017-05-09 16:00] VITALS: BP 110/48
[2017-05-09] MEDS ORDERED: DIPHENHYDRAMINE 50MG/ML VIAL IV NR (18:00)
[2017-05-09 20:00] VITALS: BP 110/56
[2017-05-10] VITALS: BP 147/59
[2017-05-10] MEDS: ONDANSETRON HCL 4MG/2ML VIAL IV PRN ×2 (00:15→22:10)
[2017-05-10] MEDS: DIPHENHYDRAMINE 50MG/ML VIAL IV PRN ×4 (00:17→18:11)
[2017-05-10] MEDS: MORPHINE SULFATE 4 MG/ML CPJ (NOT FOR IM USE) IV PRN ×5 (01:23→19:50)
[2017-05-10 04:00] VITALS: BP 147/59
[2017-05-10] MEDS: LACTATED RINGERS 1,000 ML IV SCH ×4 (05:28→22:09)
[2017-05-10 07:49] LABS: CARBON DIOXIDE 21 mEq/L (21-32); CHLORIDE 111 mEq/L (98-107)
[2017-05-10] MEDS: FERROUS SULFATE 325MG TABLET PO SCH ×3 (07:50→17:50)
[2017-05-10 08:00] VITALS: BP 102/59
[2017-05-10 08:18] LABS: HEMATOCRIT. 27.7 % (42.0-52.0); HEMOGLOBIN. 8.7 g/dL (14.0-18.0); MEAN CORPUSCULAR HEMOGLOBIN 25.1 pg (28.0-32.0); MEAN CORPUSCULAR VOLUME 80.3 fL (80.0-94.0); MEAN PLATELET VOLUME 7.4 fl (7.4-10.4); PLATELET 461 x1000/uL (130-400); RED BLOOD CELL COUNT 3.45 mill/uL (4.7-6.1); RED CELL DISTRIBUTION WIDTH 20.2 % (11.6-14.6)
[2017-05-10] MEDS: FAMOTIDINE 20MG TABLET PO SCH (09:00)
[2017-05-10] MEDS: VANCOMYCIN 750 MG PREMIX 150 ML IV SCH ×2 (09:46→22:10)
[2017-05-10] MEDS: MAGNESIUM HYDROXIDE 400MG/5ML 30ML UDC PO PRN (09:58)
[2017-05-10 12:40] VITALS: BP 105/43
[2017-05-10 16:26] LABS: PLATELET ESTIMATE INCREASED
[2017-05-10 16:32] VITALS: BP 113/66
[2017-05-10 20:00] VITALS: BP 110/57
[2017-05-11] VITALS: BP 136/83
[2017-05-11] MEDS: DIPHENHYDRAMINE 50MG/ML VIAL IV PRN ×4 (00:43→19:43)
[2017-05-11] MEDS: MORPHINE SULFATE 4 MG/ML CPJ (NOT FOR IM USE) IV PRN ×5 (03:56→22:02)
[2017-05-11 04:00] VITALS: BP 114/61
[2017-05-11] MEDS: LACTATED RINGERS 1,000 ML IV SCH ×2 (06:49→17:46)
[2017-05-11 07:49] VITALS: BP 114/63
[2017-05-11] MEDS: FERROUS SULFATE 325MG TABLET PO SCH ×3 (07:50→17:46)
[2017-05-11] MEDS: FAMOTIDINE 20MG TABLET PO SCH (08:50)
[2017-05-11] MEDS: MAGNESIUM HYDROXIDE 400MG/5ML 30ML UDC PO PRN (10:09)
[2017-05-11 11:51] VITALS: BP 106/55
[2017-05-11 16:00] VITALS: BP 131/71
[2017-05-11 20:00] VITALS: BP 106/69
[2017-05-12] VITALS: BP 134/68
[2017-05-12] MEDS: DIPHENHYDRAMINE 50MG/ML VIAL IV PRN ×3 (01:38→12:44)
[2017-05-12] MEDS: LACTATED RINGERS 1,000 ML IV SCH ×3 (01:39→08:39)
[2017-05-12] MEDS: MORPHINE SULFATE 4 MG/ML CPJ (NOT FOR IM USE) IV PRN ×3 (02:20→10:10)
[2017-05-12 05:00] VITALS: BP 115/70
[2017-05-12 06:00] VITALS: BP 115/70
[2017-05-12] MEDS: MAGNESIUM HYDROXIDE 400MG/5ML 30ML UDC PO PRN (06:59)
[2017-05-12] MEDS: FERROUS SULFATE 325MG TABLET PO SCH ×2 (07:50→12:50)
[2017-05-12 07:59] VITALS: BP 98/55
[2017-05-12] MEDS: FAMOTIDINE 20MG TABLET PO SCH (08:39)
[2017-05-12 12:00] VITALS: BP 115/58
== END 2017-05-12 14:45 | disposition home health service (06) | DRG 252 ==
LOC: ER 20:21 → 6WST 05-03 00:53 → EDBEDREQTM 05-03 00:59 → EDBEDREQ 05-03 00:59 → ENRESERV 05-03 01:47
PROVIDERS: ADMIT Internal Medicine; ATTEND Internal Medicine
DX: K91.89 Other postprocedural complications and disorders of digestive system (principal); K63.2 Fistula of intestine; D68.9 Coagulation defect, unspecified; E44.1 Mild protein-calorie malnutrition; E86.0 Dehydration; R14.0 Abdominal distension (gaseous); D50.9 Iron deficiency anemia, unspecified; F12.90 Cannabis use, unspecified, uncomplicated; K59.00 Constipation, unspecified; D72.829 Elevated white blood cell count, unspecified; G89.29 Other chronic pain; Z79.899 Other long term (current) drug therapy; Z90.81 Acquired absence of spleen; Z93.3 Colostomy status; Z68.1 Body mass index [BMI] 19.9 or less, adult
CPT/HCPCS: 36415; 71010; 74000; 74176; 74246; 80048; 80053; 80202; 80305; 81003; 82270; 82668; 82728; 82746; 83540; 83550; 83605; 83615; 83690; 83880; 84443; 84484; 85025; 85044; 85610; 85651; 85730; 87040; 93005; 96361; 96365; 96367; 96375; 99285; C1893; G0482; J1200; J2270; J2405; J2543; J3370; J3480; J3490; J7030; J7120